=== PATIENT | female | born 1995 | race Hispanic/Latino ===

== ENCOUNTER 2017-09-21 22:47 | Emergency (ER) | payer SELFPAY ==
[2017-09-21] MEDS ORDERED: Ondansetron ODT 8 MG TAB ONE (23:44)
[2017-09-21 23:49] LABS: #Lymphocytes 2.7 thou/uL (1.20-3.40); #Monocytes 0.8 thou/uL (0.11-0.59); #Neutrophils 7.7 thou/uL (1.40-6.50); %Basophils 0.2 % (0.0-1.0); %Eosinophils 0.3 % (0.0-10.0); %Monocytes 6.8 % (0.0-4.0); %Neutrophils 68.7 % (31.0-61.0); Hemoglobin 13.6 g/dL (12.0-16.0); Mean Corpuscular Hemoglobin 29.1 pg (25.0-35.0); Mean Corpuscular Volume 83.2 fL (78.0-98.0); Mean Platelet Volume 6.5 fL (7.4-10.4); Platelet Count 353 thou/uL (130-400); RBC Distribution Width 11.8 % (11.5-14.5); Red Blood Cell (RBC) Count 4.66 mill/uL (4.00-5.20); White Blood Cell (WBC) Count 11.2 thou/uL (4.8-10.8)
--- NOTE | 2017-09-21 23:54 | CT ---
NONCONTRAST HEAD CT: 09/21/17 HISTORY: Pain. Evaluate for mastoiditis. COMPARISON: None. FINDINGS: No parenchymal hemorrhage. No extra-axial hematoma. No midline shift. Basilar cisterns are patent. Br ain volume, age appropriate. Cortical arzola-white matter differentiation is preserved. Ventricle and sulci are patent and symmetric. There is some edema involving the right external auditory canal with narrowing of the external audito ry canal. Correlate for otitis externa on the right side. Intact calvarium. Adequate aeration of the sinuses and mastoid air cells. IMPRESSION: 1. No acute intracranial process. 2. Adequate aeration of both mastoid air cells. No CT evidence of mastoid air cell opacification . 3. Soft tissue fullness and prominence involving the right external auditory canal. Correlate fo r otitis externa. POS: [facility]
[2017-09-22] MEDS ORDERED: Acetaminophen 500 MG TAB ONE (00:05)
[2017-09-22 00:50] LABS: BHCG - Serum Negative (NEGATIVE); Pregs Control Background? CLEAR/WHITE (CLR/WHITE); Pregs Control Bar Appear? YES (CONTROL BAR)
[2017-09-22 02:14] LABS: Anion Gap 17 mmol/L (10-20); BUN (Urea Nitrogen) 8 mg/dL (8.4-21.0); Calc. Creatinine Clearance 0 mL/min (70-130); Calcium 9.1 mg/dL (7.8-10.44); Carbon Dioxide 19 mmol/L (22-29); Chloride 106 mmol/L (98-107); Estimated GFR-MDRD Greater than 90; Glucose 113 mg/dL (70-105); Potassium 3.6 mmol/L (3.5-5.1); Sodium 138 mmol/L (136-145)
== END 2017-09-22 02:45 | disposition home or self-care (01) ==
LOC: ERS 22:47
DX: H60.91 Unspecified otitis externa, right ear (principal)
CPT/HCPCS: 36415; 70450; 80048; 84703; 85025; 87040; 96361; 96365; 96375; J1956; J2270

== ENCOUNTER 2018-05-23 18:48 | Emergency (ER) | payer SELFPAY | END 2018-05-23 19:55 | disposition left against medical advice (07) | LOC: ERS 18:48 | DX: Z53.21 Procedure and treatment not carried out due to patient leaving prior to being seen by health care provider (principal) ==

== ENCOUNTER 2019-12-12 20:08 | Emergency (ER) | payer SELFPAY ==
[2019-12-12 21:01] LABS: #Basophils 0.1 thou/uL (0.0-0.2); #Lymphocytes 2.2 thou/uL (1.20-3.40); #Monocytes 0.6 thou/uL (0.11-0.59); #Neutrophils 8.9 thou/uL (1.40-6.50); %Basophils 0.6 % (0.0-1.0); %Eosinophils 0.3 % (0.0-10.0); %Lymphocytes 18.6 % (21.0-51.0); %Monocytes 4.8 % (0.0-10.0); %Neutrophils 75.7 % (42.0-75.0); Mean Corpuscular HGB CONC 34.9 g/dL (32.0-36.0); Mean Corpuscular Hemoglobin 30.6 pg (27.0-31.0); Mean Corpuscular Volume 87.6 fL (78.0-98.0); Mean Platelet Volume 7.2 fL (7.4-10.4); Platelet Count 316 thou/uL (130-400); RBC Distribution Width 11.5 % (11.5-14.5); Red Blood Cell (RBC) Count 4.25 mill/uL (4.20-5.40); White Blood Cell (WBC) Count 11.7 thou/uL (4.8-10.8)
[2019-12-12 21:14] LABS: D-Dimer Test 0.33 *mcg/mL (0.27-0.43)
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
[2019-12-12 22:03] LABS: Bacteria/HPF 2+ HPF (None Seen); Bilirubin Negative (Negative); Blood, Urine Negative (Negative); Clarity Extra Turbid (Clear); Glucose, Urine (Dipstick) Normal (Negative); Ketone, Urine 40 mg/dL (Negative); Leukocyte 75 Leu/uL (Negative); Nitrite Negative (Negative); Protein, Urine (Dipstick) 100 mg/dL (Neg-Trace); Specific Gravity, Urine 1.032 (1.002-1.036); Urobilinogen Normal mg/dL (Less than 2)
[2019-12-12 22:04] LABS: Squamous Epithelial 21-50 HPF (0-3)
== END 2019-12-12 23:30 | disposition home or self-care (01) ==
LOC: ERS 20:08
DX: O99.891 Other specified diseases and conditions complicating pregnancy (principal); R10.2 Pelvic and perineal pain; Z3A.10 10 weeks gestation of pregnancy; O10.911 Unspecified pre-existing hypertension complicating pregnancy, first trimester
CPT/HCPCS: 36415; 76805; 81003; 81015; 85025; 85379; 85384; 86900; 86901